=== PATIENT | female | born 1940 | race Caucasian/White ===

== ENCOUNTER 2022-10-06 18:59 | Emergency (ER) | payer MEDICARE, OTHER ==
[~2022-10-06] VITALS: Ht 154.9 cm; Wt 54.4 kg
--- NOTE | 2022-10-06 19:30 | NUR ---
MARGARETH BABIN from [facility] assisted living, per report from [place] EMT patient felt weak after dinner, and vomited. Pt is [place] speaking, appears lethargic, breathing unlabored, satration at 96% on room air, unable to get a hold of grandson/next of kin on file. Pt attached to monitor and pox. Awaiting MD ramos
[2022-10-06] MEDS ORDERED: ONDANSETRON HCL/PF 4 MG/2 ML VIAL ONE (19:57)
[2022-10-06] MEDS ORDERED: PANTOPRAZOLE 40 MG VIAL ONE (19:57)
[2022-10-06] MEDS ORDERED: PANTOPRAZOLE 40 MG VIAL IV ONE (20:00)
[2022-10-06] MEDS ORDERED: IV NS 0.9% 1,000 ML BAG IV ONE (20:00)
[2022-10-06] MEDS ORDERED: ONDANSETRON HCL/PF 4 MG/2 ML VIAL IVP ONE (20:00)
--- NOTE | 2022-10-06 20:29 | NUR ---
PT TAKEN TO CT VIA [facility]
[2022-10-06 20:32] LABS: BASOPHILS % (AUTO) 0.3 % (0.0-2.0); EOSINOPHILS % (AUTO) 0.6 % (0.0-6.0); HEMATOCRIT 38 % (33-45); HEMOGLOBIN 12.7 g/dL (11.5-14.8); LYMPHOCYTES # (AUTO) 1.1 K/uL (0.8-4.8); LYMPHOCYTES % (AUTO) 10.8 % (20.0-44.0); MEAN CORPUSCULAR HGB CONC 34 g/dl (31.0-36.0); MEAN CORPUSCULAR VOLUME 96 fL (82-100); MONOCYTES # (AUTO) 0.4 K/uL (0.1-1.30); MONOCYTES % (AUTO) 4.3 % (2.0-12.0); NEUTROPHILS # (AUTO) 8.8 K/uL (1.8-8.9); PLATELET COUNT (AUTO) 279 K/uL (150-450); RED BLOOD CELL COUNT(AUTO) 3.95 MIL/uL (4.0-5.2); WHITE BLOOD COUNT (AUTO) 10.5 K/uL (4.3-11.0)
[2022-10-06 20:49] LABS: ALBUMIN 3.6 g/dL (3.4-5.0); BILIRUBIN,DIRECT 0.1 mg/dL (0.0-0.2); BILIRUBIN,TOTAL 0.2 mg/dL (0.2-1.0); CALCIUM, SERUM 9.5 mg/dL (8.5-10.1); CREATININE 1.3 mg/dL (0.6-1.3); POTASSIUM 3.6 mmol/L (3.5-5.1); TOTAL PROTEIN, SERUM 6.7 g/dL (6.4-8.2)
--- NOTE | 2022-10-06 21:20 | NUR ---
Noted BM, large, brown and formed.
--- NOTE | 2022-10-06 21:27 | NUR ---
URINE COLLECTED, SENT TO LAB
[2022-10-06] MEDS ORDERED: LACTULOSE 10 G/15 ML UDC (PYXIS) ONE (21:48)
[2022-10-06 21:54] LABS: BILIRUBIN,URINE NEGATIVE (NEGATIVE); COLOR,URINE YELLOW (YELLOW); LEUKOCYTE ESTERASE ,URINE 1+ (NEGATIVE); NITRITE, URINE POSITIVE (NEGATIVE); PROTEIN,URINE NEGATIVE (NEGATIVE); UGLUCOSE NEGATIVE (NEGATIVE); UROBILINOGEN,URINE 0.2 EU/dL (0.2)
[2022-10-06] MEDS ORDERED: LACTULOSE 10 G/15 ML UDC (PYXIS) PO ONE (22:00)
[2022-10-06 22:17] LABS: BACTERIA,URINE Many /HPF (None Seen); RBC,URINE 0-2 /HPF (0-2); SQUAMOUS EPITHELIAL CELL,UR Few /HPF (None Seen); URINE AMORPHOUS URATE Moderate /HPF (None Seen)
--- NOTE | 2022-10-06 22:20 | NUR ---
[facility] ETA 90 MIN
--- NOTE | 2022-10-06 22:27 | NUR ---
REPORT GIVEN TO SILVANA OF [facility]
--- NOTE | 2022-10-07 00:48 | NUR ---
PATIENT PICKED UP BY [facility] ACCOMPANIED BY 2 DIRECTOR PRESALES, VITALS WNL.
[2022-10-07 00:51] VITALS: BP 101/60
== END 2022-10-07 00:48 | disposition home or self-care (01) ==
LOC: ER 20:01
DX: K59.00 Constipation, unspecified (principal); Z60.2 Problems related to living alone
CPT/HCPCS: 99285; 74176; 96374; 71045; 96361; 96375; 93005; 85025; 80048; 87086; 83690; 80076; 81001; 36415; J2405; J7030; C9113